=== PATIENT | female | born 1960 | race African-American/Black ===

== ENCOUNTER → 2018-09-25 | Outpatient (CLI) | payer MEDICARE ==
--- NOTE | 2018-09-25 12:08 | RADIOLOGY REPORT (SQ) ---
EXAM DESCRIPTION: MRI RT UPPER JOINT WITHOUT COMPLETED DATE/TIME: 09/25/2018 10:11 am REASON FOR STUDY: PAIN (R52) M25.511 PAIN IN RIGHT SHOULDER R52 PAIN, UNSPECIFIED COMPARISON: None. TECHNIQUE: Right shoulder images acquired and stored on PACS. Multiplanar imaging to include fat sen sitive sequences such as T1, water sensitive sequences such as FST2/STIR, cartilage sensitive sequenc es such as FSPD/gradient-echo sequences. LIMITATIONS: None. FINDINGS: BONE MARROW AND CORTEX: No marrow signal abnormalities worrisome for occult fracture or ag gressive marrow replacement process JOINT OR BURSAL EFFUSION: Moderate-sized shoulder joint effusion communicates with the subacromial/saravia bdeltoid bursa through a small full-thickness tear in the anterior supraspinatus tendon GLENO-HUMERAL ARTICULATION: Normal articulation. No subluxation. No cystic change. No osteophytes or cartilage loss. ACROMION AND AC JOINT: Type 2 acromion with bulky acromioclavicular joint bony spurring. Mild edema in the distal clavicle and acromion best shown on sagittal image 10 and coronal image 9. ROTATOR CUFF AND INTERVAL: Diffuse high-grade tendinopathy throughout the supraspinatus and infraspin atus tendons. Small full-thickness tear anterior supraspinatus, best shown on sagittal images 2-8 an d coronal images 6-10. Subscapularis is intact. No rotator interval tear. No rotator interval thickening to suggest adhesive capsulitis. LABRUM AND BICEPS LABRAL COMPLEX: Intra-articular long head biceps tendon is high signal from tendi nopathy. No gross superior labral tear or superior paralabral cyst. REMAINDER OF LABRUM AND IGHL : No gross tear or paralabral cyst formation. Labral evaluation is less than optimal without joint distention. No thickening of IGHL to suggest adhesive capsulitis. PERIARTICULAR AND ADJACENT SOFT TISSUES: No masses or abnormal nodes. OTHER: No other significant finding. IMPRESSION: Small full-thickness tear anterior edge supraspinatus tendon Diffuse tendinopathy throughout the supra and infraspinatus tendons without muscle atrophy. Bulky acromioclavicular joint hypertrophy. Intra-articular long head biceps tendinopathy TECHNICAL DOCUMENTATION: JOB ID: [id number] [employer]- All Rights Reserved Reading location - IP/workstation name: [facility]-[email or web address]
== END ==
LOC: RAD 09:18
PROVIDERS: ATTEND Physician Assistant
DX: M25.511 Pain in right shoulder (principal); M75.121 Complete rotator cuff tear or rupture of right shoulder, not specified as traumatic; M89.311 Hypertrophy of bone, right shoulder; M75.21 Bicipital tendinitis, right shoulder